=== PATIENT | male | born 1960 ===

== ENCOUNTER → 2017-09-06 | Day surgery (SDC) | payer OTHER | END | disposition home or self-care (01) | LOC: ADM 09-01 12:15 → AMB-ENDOS 11:33 | DX: Z85.048 Personal history of other malignant neoplasm of rectum, rectosigmoid junction, and anus (principal) ==

== ENCOUNTER 2017-10-25 12:45 | Inpatient (IN) | payer OTHER ==
[~2017-10-25] VITALS: Ht 180.3 cm; Wt 92.5 kg
[2017-11-05] MEDS ORDERED: TAMSULOSIN HCL0.4 MG PO (12:39)
[2017-11-05] MEDS ORDERED: OXYC1TAB9 PO (12:40)
== END 2017-11-05 13:58 | disposition home or self-care (01) | DRG 330 ==
LOC: O/R 10-31 06:25 → SURG 10-31 10:30 → SURH 10-31 19:53
PROVIDERS: Surgery; Urology
PROC: 07TC0ZZ Resection of Pelvis Lymphatic, Open Approach (ICD-10-PCS; 2017-10-31)
PROC: 0T170ZB Bypass Left Ureter to Bladder, Open Approach (ICD-10-PCS; 2017-10-31)
PROC: 0TJB8ZZ Inspection of Bladder, Via Natural or Artificial Opening Endoscopic (ICD-10-PCS; 2017-10-31)
PROC: 0D1N0Z4 Bypass Sigmoid Colon to Cutaneous, Open Approach (ICD-10-PCS; principal; 2017-10-31 10:30)
PROC: 0DNE0ZZ Release Large Intestine, Open Approach (ICD-10-PCS; 2017-10-31 10:30)
DX: C20 Malignant neoplasm of rectum (principal); C77.5 Secondary and unspecified malignant neoplasm of intrapelvic lymph nodes; N13.1 Hydronephrosis with ureteral stricture, not elsewhere classified

== ENCOUNTER 2017-11-14 09:15 | Outpatient (CLI) | payer OTHER ==
[~2017-11-14 09:15] MED LIST: OXYC1TAB9 PO; TAMSULOSIN HCL0.4 MG PO
== END 2017-11-14 09:30 | disposition home or self-care (01) ==
LOC: RX STUDY 09:15
DX: R31.9 Hematuria, unspecified (principal); N13.1 Hydronephrosis with ureteral stricture, not elsewhere classified